=== PATIENT | male | born 1995 | race Caucasian/White ===

== ENCOUNTER 2017-01-24 16:56 | Emergency (ER) | payer OTHER | END 2017-01-24 17:10 | disposition left against medical advice (07) | LOC: CED 16:56 | DX: Z53.21 Procedure and treatment not carried out due to patient leaving prior to being seen by health care provider (principal) ==

== ENCOUNTER 2018-07-31 14:00 | Inpatient (IN) | payer MEDICAID, OTHER ==
--- NOTE | 2018-07-31 14:30 | EDPHY ---
H & P Smoking Status: Never smoked Time Seen by Provider: 07/31/18 14:06 HPI/ROS: CHIEF COMPLAINT: Suicidal ideation, increasing agitation HISTORY OF PRESENT ILLNESS: Patient had an argument in a coffee shop today with another person. He has a history of autism and depression. He was making suicidal statements to his parents and was increasingly agitated since this encounter and his mental health provider recommended to come to the emergency department for evaluation. Here the patient says he has some suicidal thoughts but no plan. Denies homicidal ideation or hallucinations. REVIEW OF SYSTEMS: Eye: no change in vision ENT: no sore throat Cardiac: no chest pain or syncope Pulmonary: no cough or SOB Abdomen: Has some nausea and recent vomiting does not have abdominal pain. No diarrhea. Musculoskeletal: no back pain Skin: no rash Neuro: no headache Constitutional: no fever : no urinary symptoms A comprehensive 10 point review of systems is otherwise negative aside from elements mentioned in the history of present illness. PAST MEDICAL HISTORY: Autism and depression Social history: Nonsmoker, no alcohol General Appearance: Alert and conversant, cooperative. Eyes: No scleral icterus. ENT, Mouth: Normal mucous membranes. Respiratory: Normal respiratory effort, breath sounds equal, lungs are clear to auscultation. Cardiovascular: Regular rate and rhythm. Gastrointestinal: Abdomen is soft and non tender. No rebound or guarding. No McBurney's point tenderness. Neurological: Alert, face symmetric, normal motor and sensory in extremities. Skin: Warm and dry, no rashes. Musculoskeletal: No peripheral edema. Psychiatric: Not agitated. Otherwise as in HPI. Emergency Department course/MDM: Labs and urine tox, psychiatric evaluation. Signed out to [facility] at 1500 with psychiatric evaluation pending. (Justice Gallegos) Constitutional: Initial Vital Signs Temperature (C) 37.5 C 07/31/18 14:05 Heart Rate 97 07/31/18 14:05 Respiratory Rate 16 07/31/18 14:05 Blood Pressure 134/82 H 07/31/18 14:05 O2 Sat (%) 95 07/31/18 14:05 O2 Delivery Mode Room Air Allergies/Adverse Reactions: No Known Allergies Allergy (Unverified 07/31/18 14:03) Home Medications: Medication Instructions Recorded ARIPiprazole [Abilify 5 mg (*)] 5 mg PO HS 07/31/18 ARIPiprazole [Abilify] 15 mg PO HS 07/31/18 Melatonin [Melatonin 5 mg] 5 mg PO HS PRN 07/31/18 PARoxetine HCL [Paroxetine HCl] 40 mg PO HS 07/31/18 Medical Decision Making ED Course/Re-evaluation: 2132: Patient been accepted at [address] [place] [address] Alvar[address]. EMTALA FILLED OUT> APPROPRIATE TRANSFER WILL BE SET UP. (Wilbert Mendoza) - Data Points Laboratory Results: Laboratory Results 07/31/18 14:40 07/31/18 14:40 Medications Given: Aripiprazole (Abilify) 20 mg PO HS CRISTY Stop: 01/27/19 23:29 Last Admin: 07/31/18 23:33 Dose: 20 mg Lorazepam (Ativan) 0.5 - 1 mg PO Q4HRS PRN PRN Reason: Anxiety, Able to Take PO Stop: 01/27/19 22:59 Last Admin: 07/31/18 23:33 Dose: 1 mg Paroxetine HCl (Paxil) 40 mg PO HS CRISTY Stop: 01/27/19 23:29 Last Admin: 07/31/18 23:33 Dose: 40 mg Discontinued Medications Lorazepam (Ativan) 1 mg PO ONCE ONE Stop: 07/31/18 21:33 Last Admin: 07/31/18 21:35 Dose: 1 mg Departure - Departure Disposition: [facility] IP Clinical Impression: Severe major depression Condition: Good
[2018-07-31 14:48] LABS: PLATELET COUNT 209 10^3/uL (150-400)
[2018-07-31] MEDS ORDERED: LORazepam 1 MG TAB PO ONE (21:32)
[2018-07-31] MEDS ORDERED: LORazepam 1 MG TAB ONE (21:32)
--- NOTE | 2018-07-31 22:12 | ASMTTLCEVL ---
[facility] Evaluation - Basic Information Evaluation Start Date and 07/31/2018 06:30 PM Time Hospital Status Answers: M1 Hold Patient statement Notes: I got kicked out of a coffee shop. Yisel gotten verbally aggressive Narrative Notes: Pt is a 23 year old male who was brought to [facility] Ed after he got into an argument at a coffee shop and became verbally aggressive and agitated. Pts psychiatrist recommended pt come in to the emergency department for an evaluation. Per parents pt has increased agitation and insistence around going to this coffee shop even though he is no longer wanted there due to his aggressive behaviors. Today, pt became verbally aggressive to another customer and he vomited in and bathroom was kicked out of the coffee shop and pt became agitated. Pt stated, I get angry when I feel Yisel been wronged.This song writer spoke with pt.s psychiatrist Dr. Pierre. Dr. Pierre stated, Pts mother called him and stated People prison librarian him to be unsafe, and think he is dangerous and cannot contain him. Pt stated he was having SI yesterday he felt suicidal but no plan. Pt denies SI currently. Mom stated she does not feel safe taking pt home and stated, I know he will try and leave and go back to the coffee shop and because he is autistic, there will be a violent altercation. Mom would like pt to be hospitalized. Diagnosis History Notes: Pt has a hx of high functioning autism. Parents state his psychiatrist believe pt is showing signs of paranoia and has a mood disorder. Prior suicide attempts Notes: Pt denied any prior suicide attempts but stated he has had SI yesterday but no plan. Prior hospitalizations Notes: None reported Treatment Responses Notes: N/A History of violence Notes: Pt denied but father reported that pt told him just a few minutes prior to this evaluation that he wants to burn down the coffee house. Pt admitted that he did say that but that he does not mean it and if that even if I did do it, I would not do it when people were inside, but Im not going to do that. Therapist: Dr. Kelly Psychiatrist: Dr. Pierre Medications (name, dosage, route, freq uency) Notes: Abilify 20mg; Melatonin; Paroxetine 40mg Benzodiazapene (Unsure what benzo) Allergies/Reaction Notes: Nka Sleep Notes: Wnl Appetite Notes: Wnl Medical/Surgical history Notes: Pt reports recent vomiting and fainting. He has an appt tomorrow with his pcp for a check up. Substance use history (frequency, intensity, his tory, duration) Notes: Pt denied any drug use and states he drinks socially. Utox positive for benzodiazepines and bal was .0. Family composition Notes: Pt has 1 older half-brother. Need for family Answers: No participation in patient's care Family psychiatric/substance abuse history Notes: Pts maternal grandmother was schizophrenic, mother has depression. Father has depression and pt.s paternal aunt was schizophrenic. Developmental history Notes: Pt was dx with autism at age 23. Pt reports he was bullied all through elementary, middle school and high school. Pt denied any childhood abuse. Pt denied any concussions. Abuse concerns Answers: None Marital status/children Notes: Unmarried, no children. Living situation Notes: Pt Lives in [place] with his roommate in coffee shop. Sexual history/orientation Notes: Heterosexual Peer support/family strengths Notes: Pt stated he has a good support system. Education level/history Notes: Pt completed some college. Work history Notes: Pt stated he works at [employer]. Notes: None reported. Legal Notes: Pt stated road rage and followed up and yelled at her and hat block maker gave him a court date. There was another incident where pt liked a surgical scheduler at a coffee shop but she felt uncomfortable with his advances and the parking manager filed a restraining order against him and he will not be allowed to go back. Voodoo/Spiritual Notes: None that would interfere with tx. Leisure Notes: Pt enjoys hikers and bikes. Collateral Notes: Parents Dr. Pierre Patient's strengths Answers: Honest (Please select at least TWO strengths): Intelligent Willingness TLC Evaluation - Mental Status Exam Appearance: Answers: Appropriate Eye Contact: Answers: Intermittent Mood: Answers: Irritable Sad Affect: Answers: Calm Guarded Behavior: Answers: Cooperative Resistive to Care Speech: Answers: Relevant Logical Clear Coherent Thought Process: Answers: Organized Oriented Alert Insight: Answers: Fair Judgement: Answers: Poor Manic Signs/Symptoms Answers: Mood Swings Hallucinations: Answers: None Delusions: Answers: Paranoid Ideation Pt reported to have Answers: No suicidal/self-injuring ideation/behavior? Pt reported to be making Answers: Yes suicidal/self-injuring threats? Pt reported to have Answers: No aggression/assault ideation/behavior? Pt reported to be making Answers: Yes aggression/assault threats? Pt exhibits inability to Answers: No care for self/grave disability? Ideation/behavior is Answers: Yes chronic? Patient has a specific Answers: No plan? History of Answers: No suicidal/self-injuring ideation, behavior, or threats? History of Answers: Yes aggressive/assaultive ideation, behavior, or threats? History of serious Answers: No physical harm to self/others while in treatment setting? TLC Evaluation - Suicide/Homicide Risk Suicide Risk Factors: Answers: < 20 or > 40 Years of Age Agitation Rapid Mood Shifts Homicide/violence risk Answers: Threats Towards Others factors: Current Suicidal Answers: No Ideation? Current Suicidal Ideation Answers: Yes in the Past 48 Hours? Current Suicidal Answers: No Ideation, Worst Ever? Suicide Internal Answers: Absence of Psychosis Protective Factors: Suicide External Answers: Positive Therapeutic Protective Factors: Relationships Social Support Ranking of patient's Answers: Moderate suicidal risk: Ranking of patient's Answers: Moderate homicidal risk: TLC Evaluation - Wrap-up AXIS I Diagnosis (include DSM-V and ICD-10 codes), must also be entered in [employer], which is the source of truth. Notes: Unspecified Schizophrenia Spectrum and Other Psychotic Disorder 298.9 (F29) Autism Spectrum Disorder 299.00 (F84.0) In consultation with [facility] ED physician, Wilbert Salazar MD and on-call psychiatrist, Julianna Alvarado MD, both concurred that pt appears to meet 27-65 criteria requiring psychiatric hospitalization as pt appears to be at risk of harm to self/others due to a mental illness condition Evaluation End Date and 07/31/2018 10:10 PM Time (HH:MAURA): Date Signed: 07/31/2018 10:11 PM Electronically Signed By:Vielka Mendoza
--- NOTE | 2018-07-31 22:14 | ASMTTCLDSP ---
TLC Discharge Disposition Disposition: Answers: Admit Discharge Concerns/Recommendations: Notes: In consultation with [facility] ED physician, Wilbert Salazar MD and on-call psychiatrist, Julianna Alvarado MD, both concurred that pt appears to meet 27-65 criteria requiring psychiatric hospitalization as pt appears to be at risk of harm to self/others due to a mental illness condition. Pt was given the 3[facility] prohibited belongings list while in the ED. Was patient given the Answers: Yes Inpatient Behavioral Health Prohibited Belongings List while in the ED? For inpatient Julianna Alvarado MD admission, the following psychiatrist agreed to accept patient for admission to Behavioral Health ([facility]): Date Signed: 07/31/2018 10:13 PM Electronically Signed By:Vielka Mendoza
[2018-07-31] MEDS ORDERED: ACETAMINOPHEN 325 MG TAB PO PRN (23:25)
[2018-07-31] MEDS ORDERED: NICOTINE POLACRILEX 2 MG GUM B PRN (23:25)
[2018-07-31] MEDS ORDERED: MAGNESIUM HYDROXIDE 30 ML UDCUP PO PRN (23:25)
[2018-07-31] MEDS ORDERED: MAG HYDROX/AL HYDROX/SIMETH 30 ML UDCUP PO PRN (23:25)
[2018-07-31] MEDS ORDERED: OLANZapine DISINTEGR 5 MG TAB PO PRN (23:30)
[2018-07-31] MEDS ORDERED: ARIPiprazole 5 MG TAB PO SCH (23:30)
[2018-07-31] MEDS ORDERED: MELATONIN 3 MG TAB PO PRN (23:30)
[2018-07-31] MEDS: ARIPiprazole 10 MG TAB PO SCH (23:33)
[2018-07-31] MEDS: PARoxetine HCL 20 MG TAB PO SCH (23:33)
[2018-07-31] MEDS: LORazepam 0.5 MG TAB PO PRN (23:33)
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
[2018-08-01] MEDS: LORazepam 0.5 MG TAB PO PRN (10:04)
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
--- NOTE | 2018-08-01 16:01 | PDMN ---
Medical Necessity Medical necessity: Pt meets inpt criteria per MD order and [facility] B-012, Autism Spectrum Disorders, Adult: Inpatient Care. 23 y/o admitted w/autism spectrum disorder and adjustment disorder w/mixed disturbance of emotions and conduct, on M1 hold due to risk of harm to self and others, requiring inpt psychiatric hospitalization.
[2018-08-01] MEDS ORDERED: ONDANSETRON DISINTEGRATING 4 MG TAB PO PRN (18:58)
[2018-08-01] MEDS: PARoxetine HCL 20 MG TAB PO SCH (19:11)
[2018-08-01] MEDS: ARIPiprazole 10 MG TAB PO SCH (19:11)
--- NOTE | 2018-08-01 19:23 | PDGENHP ---
History and Physical - Chief Complaint medical evaluation - History of Present [facility]ness 23 [facility] Has depression, autism spectrum disorder and per report increasing depression and angry outbursts, concerns about suicidal thoughts. He denied recent illness, cough, congestion, v/d, abdominal pain. Does have frequent heartburn symptoms with nausea. Also has occ frontal headaches, no history of migraines. History Information - Allergies/Home Medication List Allergies/Adverse Reactions: No Known Allergies Allergy (Unverified 07/31/18 14:03) Home Medications: ARIPiprazole [Abilify 5 mg (*)] 5 mg PO HS 07/31/18 [Last Taken 07/30/18] ARIPiprazole [Abilify] 15 mg PO HS 07/31/18 [Last Taken 07/30/18] Melatonin [Melatonin 5 mg] 5 mg PO HS PRN 07/31/18 [Last Taken 07/30/18] PARoxetine HCL [Paroxetine HCl] 40 mg PO HS 07/31/18 [Last Taken 07/30/18] I have personally reviewed and updated: medical history, social history, surgical history Past Medical History: depressin, autism spectrum/[facility] (Dr Tan Pierre, Dr Oneil, PCP Dr Harshad Mason) - Past Medical History Additional medical history: no DM/HTN/asthma - Surgical History Reports: no pertinent surgical hx - Family History Positive for: non-pertinent - Social History Smoking Status: Never smoked Alcohol Use: Rarely (2-3 beers a week) Drug Use: None Additional social history: 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 a roommate, 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, family in area Review of Systems Review of Systems: Physical Exam Physical Exam: Temp Pulse Resp BP Pulse Ox 98.1 F 90 16 119/77 96 08/01/18 09:40 08/01/18 09:40 08/01/18 09:40 08/01/18 09:40 08/01/18 09:40 Constitutional: no apparent distress Eyes: anicteric sclera Ears, Nose, Mouth, Throat: moist mucous membranes, hearing normal Cardiovascular: regular rate and rhythym, no murmur, rub, or gallop Respiratory: no respiratory distress, no rales or rhonchi, clear to auscultation Gastrointestinal: normoactive bowel sounds, soft, non-tender abdomen Skin: warm, normal color Psychiatric: depressed, flat affect Lymph, Heme, Immunologic: no cervical LAD Lab Data & Imaging Review 07/31/18 14:40 07/31/18 14:40 WBC 6.65 10^3/uL (3.80-9.50) 07/31/18 14:40 RBC 5.32 10^6/uL (4.40-6.38) 07/31/18 14:40 Hgb 15.6 g/dL (13.7-17.5) 07/31/18 14:40 Hct 45.0 % (40.0-51.0) 07/31/18 14:40 MCV 84.6 fL (81.5-99.8) 07/31/18 14:40 MCH 29.3 pg (27.9-34.1) 07/31/18 14:40 MCHC 34.7 g/dL (32.4-36.7) 07/31/18 14:40 RDW 12.3 % (11.5-15.2) 07/31/18 14:40 Plt Count 209 10^3/uL (150-400) 07/31/18 14:40 MPV 10.3 fL (8.7-11.7) 07/31/18 14:40 Neut % (Auto) 70.2 % (39.3-74.2) 07/31/18 14:40 Lymph % (Auto) 21.5 % (15.0-45.0) 07/31/18 14:40 [place] % (Auto) 6.6 % (4.5-13.0) 07/31/18 14:40 Eos % (Auto) 0.8 % (0.6-7.6) 07/31/18 14:40 Baso % (Auto) 0.6 % (0.3-1.7) 07/31/18 14:40 Nucleat RBC Rel Count 0.0 % (0.0-0.2) 07/31/18 14:40 Absolute Neuts (auto) 4.67 10^3/uL (1.70-6.50) 07/31/18 14:40 Absolute Lymphs (auto) 1.43 10^3/uL (1.00-3.00) 07/31/18 14:40 Absolute Monos (auto) 0.44 10^3/uL (0.30-0.80) 07/31/18 14:40 Absolute Eos (auto) 0.05 10^3/uL (0.03-0.40) 07/31/18 14:40 Absolute Basos (auto) 0.04 10^3/uL (0.02-0.10) 07/31/18 14:40 Absolute Nucleated RBC 0.00 10^3/uL (0-0.01) 07/31/18 14:40 Immature Gran % 0.3 % (0.0-1.1) 07/31/18 14:40 Immature Gran # 0.02 10^3/uL (0.00-0.10) 07/31/18 14:40 Sodium 140 mEq/L (135-145) 07/31/18 14:40 Potassium 4.0 mEq/L (3.3-5.0) 07/31/18 14:40 Chloride 105 mEq/L (97-110) 07/31/18 14:40 Carbon Dioxide 25 mEq/l (22-31) 07/31/18 14:40 Anion Gap 10 mEq/L (6-14) 07/31/18 14:40 BUN 14 mg/dL (7-23) 07/31/18 14:40 Creatinine 0.8 mg/dL (0.7-1.3) 07/31/18 14:40 Estimated GFR > 60 07/31/18 14:40 Glucose 104 mg/dL (70-100) H 07/31/18 14:40 Hemoglobin A1c 5.7 % (4.0-6.0) 07/31/18 14:40 Estim Average Glucose 117 mg/dL (68-126) 07/31/18 14:40 Calcium 10.0 mg/dL (8.5-10.4) 07/31/18 14:40 Total Bilirubin 0.8 mg/dL (0.1-1.4) 07/31/18 14:40 Conjugated Bilirubin 0.2 mg/dL (0.0-0.5) 07/31/18 14:40 Unconjugated Bilirubin 0.6 mg/dL (0.0-1.1) 07/31/18 14:40 AST 27 IU/L (17-59) 07/31/18 14:40 ALT 32 IU/L (21-72) 07/31/18 14:40 Alkaline Phosphatase 79 IU/L (38-126) 07/31/18 14:40 Total Protein 7.6 g/dL (6.3-8.2) 07/31/18 14:40 Albumin 4.8 g/dL (3.5-5.0) 07/31/18 14:40 Triglycerides 275 mg/dL (40-150) H 07/31/18 14:40 Cholesterol 203 mg/dL (140-200) H 07/31/18 14:40 Cholesterol Risk Factr 1.0 (0.2-1.0) 07/31/18 14:40 LDL Cholesterol, Calc 105 mg/dL (60-100) H 07/31/18 14:40 LDL Risk Factor 0.8 (0.2-1.0) 07/31/18 14:40 VLDL Cholesterol 55 mg/dL (8-25) H 07/31/18 14:40 Non-HDL Cholesterol 160 mg/dL (90-129) H 07/31/18 14:40 HDL Cholesterol 43 mg/dL (40-70) 07/31/18 14:40 LDL/HDL Ratio 2.44 RATIO (1.00-3.64) 07/31/18 14:40 Cholesterol/HDL Ratio 4.72 RATIO (1.00-4.97) 07/31/18 14:40 Salicylates < 1.0 mg/dL (2.0-20.0) L 07/31/18 14:40 Urine Opiates Screen NEGATIVE (NEGATIVE) 07/31/18 16:22 Acetaminophen < 10 mcg/mL (10-30) L 07/31/18 14:40 Urine Barbiturates NEGATIVE (NEGATIVE) 07/31/18 16:22 Ur Phencyclidine Scrn NEGATIVE (NEGATIVE) 07/31/18 16:22 Ur Amphetamine Screen NEGATIVE (NEGATIVE) 07/31/18 16:22 U Benzodiazepines Scrn NON-NEGATIVE (NEGATIVE) H 07/31/18 16:22 Urine Cocaine Screen NEGATIVE (NEGATIVE) 07/31/18 16:22 U Marijuana (THC) Screen NEGATIVE (NEGATIVE) 07/31/18 16:22 Ethyl Alcohol < 10 mg/dL (0-10) 07/31/18 14:40 Assessment & Plan Assessment: Adjustment disorder with mixed disturbance of emotions and conduct (Acute) Autism spectrum disorder (Chronic) -per team Heartburn/nausea -ordered pepcid daily and zofran to use as needed Headache -prns ordered Thank you for asking hospitalist to participate in his care and please contact us if further medical needs arise.
[2018-08-02] MEDS: FAMOTIDINE 20 MG TAB PO SCH (08:53)
[2018-08-02] MEDS: LORazepam 0.5 MG TAB PO PRN (14:48)
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
--- NOTE | 2018-08-02 17:25 | SOAPPROG ---
SOAP Progress Note Assessment/Plan: Assessment: 23 yo man with ASD who had an argument in a coffee shop, and was making suicidal statements to his parents. He denies intent or plan. Plan: 08/02/18 17:21 1. Patient has been appropriate and cooperative on unit. He enjoys socializing with peers and attending group therapy. 2. [facility] [place] feel comfortable with patient returning to his own apartment and being alone. She says he cannot stay with her at her house. [facility] [place]. CC will attempt to contact [facility] providers to discuss options for respite placement. 3. Patient has not made any mention of SI or intent or plan to harm himself or anyone else. 4. Patient is eating and sleeping well. 5. CCM Subjective: Patient has been cooperative and appropriate on unit. He does not demonstrate any aggressive or unsafe behavior. MOC spoke to CC and explained that patient can't live with her, and she doesn't feel comfortable with patient returning to his own place. attempted to explain there are not many other options for patient right now. [facility] [place] [facility] could offer some type fo respite care for him temporarily. CC attempted to contact [facility], but they have not responded yet. Objective: Vital Signs Temp Pulse Resp BP Pulse Ox 36.7 C 67 16 137/72 H 100 08/01/18 09:40 08/02/18 06:00 08/02/18 06:00 08/02/18 06:00 08/02/18 06:00 MSE: Affect: Flat Mood: "OK" TP: Slow to respond, paucity of speech TC: Denies any SI/HI Insight/Judgment: Poor - Time Spent With Patient Time Spent With Patient: 15" - Pending Discharge Pending Discharge Within 24 Hours: No Pending Discharge Within 48 Hours: No ICD10 Worksheet Patient Problems: Problems Problem Status Onset Adjustment disorder with mixed disturbance of emotions and conduct Acute Autism spectrum disorder Chronic
[2018-08-02] MEDS: ARIPiprazole 10 MG TAB PO SCH (21:00)
[2018-08-02] MEDS: PARoxetine HCL 20 MG TAB PO SCH (21:00)
[2018-08-03] MEDS: FAMOTIDINE 20 MG TAB PO SCH (09:10)
--- NOTE | 2018-08-03 15:05 | ASMTBHDC ---
Notes Note: Notes: Pt. reports feeling "pretty good. Nice and cozy in here". Pt. reports sleeping "really well". Pt. stated he is "absolutly" getting enough to eat. Pt. reports no issues with his current medications. Pt. stated his therapist is Dr. Oneil, in [place] Pt. stated he is attending groups, and likes art group. Pt. stated "found everyone here to be very nice". Pt. shared he had several visitors yesterday. Pt. requested to shave. Pt. stated he hopes to discharge on Saturday and then take Saturday off from work. When asked if he could stay away from the coffee shop near his home, pt stated "try but don't know if I could do that". Pt. stated he doesn't have a car. Pt. stated he likes coffee shops. Pt. denied SI, HI, AVH, and paranoia. Pt. presents as alert, good eye contact, fidgety cooperative, and friendly. Staff report pt. sleeping 8 hours and being medication compliant. Date Signed: 08/03/2018 03:04 PM Electronically Signed By:Mary Ellen Mendez
--- NOTE | 2018-08-03 17:43 | SOAPPROG ---
SOAP Progress Note Assessment/Plan: Assessment: 23 yo man with ASD who had an argument in a coffee shop, and was making suicidal statements to his parents. He denies intent or plan. Plan: 08/02/18 17:21 1. Patient has been appropriate and cooperative on unit. He enjoys socializing with peers and attending group therapy. 2. [facility] reports she does not feel comfortable with patient returning to his own apartment and being alone. She says he cannot stay with her at her house. [facility] is requesting a respite placement. will attempt to contact [facility] providers to discuss options for respite placement. 3. Patient has not made any mention of SI or intent or plan to harm himself or anyone else. 4. Patient is eating and sleeping well. 5. [facility] 08/03/18 17:37 1. Patient remains cooperative, calm and appropriate. He has attended all groups. No aggression or unsafe behavior. 2. [facility] reports patient vomited frequently prior to admission. She thinks it's b/ c he drinks too much coffee. She wrote long letter describing patient's daily routine. He spends most of his day at one of two coffee chops in his neighborhood. She says he doesn't know how to regulate his caffeine intake. He was asked not to return to one coffee shop b/c he vomited in their restroom. 3. Patient obviously benefits from routine and structure of hospital environment. He may not be suited to living independently. [facility] would like [facility] to offer patient a nursing home or respite placement. has left messages with [facility] ed case manager. Will likely need to f/u with [facility] on Saturday to determine whether there are any placement options available. 4. also left message with OP psych MD, Dr. Pierre, about placement and aftercare appointments. 5. CCM. 6. Patient agrees to sign in voluntary. Subjective: Patient is wearing shorts and T-shirt despite it being < 30 deg outside and snowing. He says he is enjoying his stay in hospital. He is interacting appropriately with peers and participating in group therapy and milieu activities. [facility] left letter for MD to read. She is very worried about patient returning to his apartment to live alone. She says he spends most of his time at two coffee shops in his neighborhood and has alienated staff at both places d /t his inappropriate behavior. She reports patient has difficulty regulating himself and becomes easily frustrated in social situations. MOC feels like patient needs more structure and supervision. He works part-time at [employer]. She would like him to live in nursing home, but so far [employer] has not approved this. Objective: Vital Signs Temp Pulse Resp BP Pulse Ox 36.5 C 61 20 128/75 H 93 08/03/18 06:00 08/03/18 06:00 08/03/18 06:00 08/03/18 06:00 08/03/18 06:00 MSE: Affect: Pleasant Mood: "Good" TP: Goal-directed TC: Denies any SI/HI Insight/Judgment: Fair for his cognitive baseline (FSIQ 80) - Time Spent With Patient Time Spent With Patient: 15" - Pending Discharge Pending Discharge Within 24 Hours: No Pending Discharge Within 48 Hours: No ICD10 Worksheet Patient Problems: Problems Problem Status Onset Adjustment disorder with mixed disturbance of emotions and conduct Acute Autism spectrum disorder Chronic
[2018-08-03] MEDS: ARIPiprazole 10 MG TAB PO SCH (21:00)
[2018-08-03] MEDS: PARoxetine HCL 20 MG TAB PO SCH (21:00)
[2018-08-04] MEDS: FAMOTIDINE 20 MG TAB PO SCH (08:05)
--- NOTE | 2018-08-04 08:42 | SOAPPROG ---
SOAP Progress Note Assessment/Plan: Assessment: Major Depressive Disorder, Severe. Autism Spectrum Disorder. Improvement noted. (see subjective/objective note). Patient requires continued inpatient hospitalization due to recent suicidal ideation. Patient could benefit from continued inpatient hospitalization for crisis stabilization, safety, and medication evaluation. Patient likely reaching baseline and discharge tomorrow if stable with safe discharge plan. Plan: 1. Psychotropic medications: After reviewing options, risks, and benefits patient agrees to continue current medications. No other medication changes at this time as more time is needed to determine ongoing tolerability and efficacy. Plan is to continue to observe patient for response and side effects from medications, and ongoing monitoring and evaluation. 2. Review with patient informed consent and recommendations for psychotropic medication treatment listed below 3. Labs: no additional labs at this time 4. Therapy: continue milieu and group therapy 5. Further investigation including gathering information from patients relatives and review of past case records to inform treatment plan. 6. Safety/Wellness plan and follow-up outpatient appointments to be established prior to discharge. Next steps are for patient to meet with resident care aide to plan a safe discharge plan and establish outpatient services for ongoing treatment. 7. Confer with inpatient treatment team regarding treatment plan. 8. Psychosocial stressors addressed through day care provider 9. Legal status: voluntary 10. Consider discharge on Saturday if patient is in stable condition, safe, and has a safe discharge plan. PSYCHOTROPIC MEDICATION TREATMENT INFORMED CONSENT and RECOMMENDATIONS: Review nature of condition, diagnosis, and prognosis. Review nature and purpose of psychotropic medication treatment. Review type of psychotropic medications being ordered. Review risk and benefits of psychotropic medication treatment. Review probable length of time patient will need to take medications. Review risk and benefits of not undergoing psychotropic medication treatment. Review alternative treatments to psychotropic medications. Review psychotropic medications contraindications, drug-drug interactions, side effects, and importance of reporting any side effects to a psychiatric provider or nurse during inpatient hospitalization, and upon discharge to patients psychiatric outpatient provider, primary care provider, or other health manager urgent care. Review importance of asking a nurse, psychiatric provider, or primary care provider any questions or problems concerning the psychotropic medications. Verify patient understands the information that has been provided, and understands, accepts, and agrees to psychotropic medications. Review patients safety plan and importance of patient to report to staff while hospitalized if patient is ever a danger to self/others, or unable to care for self, and upon discharge, the importance for patient to contact [facility] or 911, or go to the nearest emergency room, if patient is ever a danger to self/others, or unable to care for self. Recommend that upon discharge patient establish medication management treatment with a psychiatric provider, establishes routine therapy appointments, and follow-up with primary care provider. Verify patient understands and agrees to these recommendations. 08/04/18 08:45 Subjective: Following up with patient for evaluation of depression and safety. Patient reports, "Doing good. Going okay." Patient expresses the following psychiatric symptoms none. Patient denies SI/HI, and reports no SI since prior to his admission. Patient denies HI prior to admission. Patient reports taking medications as prescribed, and describes response to medications as good. Patient does not report undesirable side effects from the medications, and agrees to continue current medications. Patient describes getting 8 hours of sleep. Objective: Vital Signs Temp Pulse Resp BP Pulse Ox 36.5 C 64 20 120/59 L 94 08/04/18 06:00 08/04/18 06:00 08/04/18 06:00 08/04/18 06:00 08/04/18 06:00 NURSING REPORT: Consulted with nursing for update on patients progress in treatment. Nurses report patient is engaged in treatment, is attending groups, slept 8 hours, expresses the following psychiatric symptoms: moderate anxiety; exhibits the following psychiatric symptoms: anxiety; is eating all meals, is agreeable to medications and taking as prescribed with no report of side effects , with no s/s of EPS/akathisia, and denies SI/HI, denies A/V hallucinations, and denies delusions. MD REPORT FROM WEEKEND: Patient is doing well, no complaints, no SI. MSE: The patient presents casually dressed and with good hygiene, and looks stated age. Patient is sitting, posture is upright, and position is relaxed. Patient appears awake, alert, and responds appropriately and reasonably during interview. Patient is engaged, relates well to interviewer, and emotional facial expression is appropriate to situation and changes appropriately with topic. Patient is cooperative, makes comfortable eye contact, and movements are voluntary, deliberate, coordinated, and smooth and even with no inappropriate movements. Patient makes laryngeal sounds effortlessly and shares conversation appropriately; pace of conversation is appropriate, and stream of talking is fluent; articulation is clear and understandable; word choice is effortless and appropriate for education level; completes sentences, occasionally pausing to think; rate and volume are appropriate for interview and setting. Patient reports mood as anxious. Patients affect is anxious, congruent with mood, and appropriate to speech and circumstances. Patient has linear and logical thinking, with no loose associations, tangential thought, thought blocking, concrete thinking, or any other signs of formal thought disorder. Patient denies suicidal and homicidal ideation, and denies hallucinations and delusions. Patient appears to be a reliable historian with sound judgement and good insight into current condition. Patient has no apparent dysfunction in recent or remote memory noted, and no evidence of gross cognitive dysfunction noted at any point during the interview. - Time Spent With Patient Time Spent With Patient: 15 minutes, met with patient individually. - Pending Discharge Pending Discharge Within 24 Hours: No Pending Discharge Within 48 Hours: No ICD10 Worksheet Patient Problems: Problems Problem Status Onset Adjustment disorder with mixed disturbance of emotions and conduct Acute Autism spectrum disorder Chronic
[2018-08-04] MEDS: LORazepam 0.5 MG TAB PO PRN (13:25)
--- NOTE | 2018-08-04 13:56 | ASMTBHDC ---
Notes Note: Notes: Pt. reports feeling "pretty good". Pt. stated he slept "good". Pt. stated he is "very mad at coffee shop". Pt. stated he is upset they threw him out for getting sick. Pt. stated "no one's helping me convince the coffee shop bora..." Pt. stated if he cannot go home, he could rent a hotel for a couple of nights, adding he has savings. Pt. stated he has over a $100 in savings. Pt. denied SI, HI, AVH and paranoia. Pt. presents as alert, slightly agitated, fair eye contact, fidgeting, and distracted. Staff report pt. sleeping 7.5 hours and being medication compliant. Date Signed: 08/04/2018 01:55 PM Electronically Signed By:Mary Ellen Mendez
--- NOTE | 2018-08-04 14:46 | ASMTBHFAM ---
Notes Note: Notes: CC spoke with pt's mother, Adore [phone] MOC stated pt. is "not going to let that go" referring to the coffee shop incident. MOC stated that is "part of why he can't return to his existing apartment". MOC stated pt needs "full supervision". MOC asked about if the pt's medications have been changed, adding she thinks he needs "medication stablization". MOC stated she "I disagree, he is a danger to himself". MOC stated he is a danger to himself because "if he decided to go back there, the police will get involved". MOC stated pt. is very scared of the police. MOC agreed to a family meeting on Saturday08/05/18 at 11:00am CC spoke with pt's [employer] (ICM), Harjinder Cook, ICM stated he is working on getting pt "emergency DD enrollment", adding it could take a few days to a few weeks. ICM stated pt is a "tier one" which makes him more difficult to place. ICM stated he has been in contact with MOC and pt's therapist. ICM stated if pt is eligible ICM will apply for an emergency funds application to assist with pt's housing. Date Signed: 08/04/2018 02:44 PM Electronically Signed By:Mary Ellen Mendez
[2018-08-04] MEDS: PARoxetine HCL 20 MG TAB PO SCH (21:04)
[2018-08-04] MEDS: ARIPiprazole 10 MG TAB PO SCH (21:04)
[2018-08-05 06:38] VITALS: BP 119/58
[2018-08-05] MEDS: FAMOTIDINE 20 MG TAB PO SCH (08:58)
--- NOTE | 2018-08-05 14:23 | BDS ---
REASON FOR ADMISSION: From the ED note dated 07/31/2018, the patient had an argument at a coffee shop prior to presenting to the emergency department. Patient has a history of autism and depression. Patient was making suicidal statements to his parents and was increasingly agitated since the encounter in the coffee shop, and his mental health provider recommended he go to the emergency department for evaluation. Patient reported suicidal thoughts with no plan. Patient denied homicidal ideation or hallucinations. Patient was admitted involuntarily on an M1 hold due to being a danger to himself. Patient was admitted for safety, crisis stabilization, and medication evaluation. ADMITTING DIAGNOSES: 1. Adjustment disorder with mixed disturbance of emotions and conduct. 2. Autism spectrum disorder admission. ADMISSION PHYSICAL EXAM: Patient was seen for history and physical on 2017, for medical clearance for inpatient psychiatric hospitalization. Patient was medically cleared for inpatient psychiatric hospitalization and treatment. For further details, please refer to history and physical dated 08/01/2018. ADMISSION LABORATORY DATA: CBC from 07/31/2018, within normal limits. BMP from 07/31/2018, within normal limits, except glucose is elevated at 104. Hemoglobin A1c from 07/31/2018, was 5.7 and within normal limits. Liver function from 07/31/2018, within normal limits. Lipid panel from 07/31/2018, within normal limits, except triglycerides were elevated at 175, cholesterol was elevated at 203, LDL cholesterol calculated was elevated at 105, VLDL cholesterol was elevated at 55, non-HDL cholesterol was elevated at 160. Toxicology screen from 07/31/2018, was non-negative for benzodiazepines, negative for all other substances screened, and negative for ethyl alcohol. MAJOR PROCEDURES/TESTS: None. HOSPITAL COURSE: The most prominent symptoms and behaviors while the patient was here were moderate anxiety and depression. Treatment modalities utilized were milieu and group therapy. Patient's outpatient medications were continued , including Paxil 40 mg p.o. q.h.s. and Abilify 20 mg p.o. q.h.s. these medications were tolerated with no report of side effects and with good response. Patient has improved considerably with no signs of psychiatric symptoms and no psychiatric symptoms expressed at time of discharge. Patient reports he has improved since admission, states to be in stable condition, feels safe to discharge, and he contracts for safety. Patient's response to treatment was good. There were no adverse or unexpected results of treatment. The patient was safe throughout his stay, active in treatment, attended and engaged in groups, and was appropriate with staff. Patient met with the treatment team prior to discharge to assess readiness to discharge and review discharge plan. The treatment team consensus is the patient is in stable condition, has a safe discharge plan, and is ready to discharge today. CONDITION AT DISCHARGE: Patient is in stable condition and is no longer a danger to self or others, and is not gravely disabled due to mental illness. Patient is no longer in need of inpatient level of care, and can be safely and effectively treated within the community. The patients level of risk at time of discharge is low. MSE: The patient is casually dressed and with good hygiene , and looks stated age. Patient is sitting, posture is upright, and position is relaxed. Patient appears awake, alert, and responds appropriately and reasonably during interview. Patient is engaged, relates well to interviewer, and emotional facial expression is appropriate to situation and changes appropriately with topic. Patient is cooperative, makes comfortable eye contact , and movements are voluntary, deliberate, coordinated, and smooth and even with no inappropriate movements. Patient makes laryngeal sounds effortlessly and shares conversation appropriately; pace of conversation is appropriate, and stream of talking is fluent; articulation is clear and understandable; word choice is effortless and appropriate for education level; completes sentences, occasionally pausing to think; rate and volume are appropriate for interview and setting. Patient reports mood as euthymic. Patients affect is stable with full variable range, congruent with mood, and appropriate to speech and circumstances. Patient has linear and logical thinking, with no loose associations, tangential thought, thought blocking, concrete thinking, or any other signs of formal thought disorder. Patient denies suicidal and homicidal ideation, and denies hallucinations and delusions. Patient appears to be a reliable historian with sound judgement and good insight into current condition. Patient has no apparent dysfunction in recent or remote memory noted , and no evidence of gross cognitive dysfunction noted at any point during the interview. DISCHARGE DIAGNOSES: 1. Adjustment disorder with mixed disturbance of emotions and conduct. 2. Autism spectrum disorder admission. CURRENT MEDICATIONS: After reviewing options risks and benefits with the patient, patient agrees to continue: 1. Abilify 20 mg p.o. q.h.s. 2. Paroxetine 40 mg p.o. q.h.s. Patient reports he has prescriptions for these medications and does not require any prescriptions at time of discharge. The medications and dosage and dosages are reviewed with the patient at time of discharge to ensure accuracy and patient understanding. DISPOSITION: Patient left hospital independently and voluntarily with his mother and father after meeting with this PARISH VISITOR and occasional caregiver for a family meeting. Patient plans to return home with his parents. FOLLOWUP: career development coordinator reports the appropriate outpatient follow-up services have been established and outpatient appointments have been scheduled. The patient received written instructions with times and dates of outpatient follow-up appointments. The following follow-up recommendations were provided to the patient at discharge: Continue psychotropic medications as prescribed and attend appointments as scheduled. Report any side effects to a psychiatric outpatient provider, a primary care provider, or other health ocular care aide. Address any questions or problems concerning the psychotropic medications with a psychiatric outpatient provider, a primary care provider, or other health ocular care aide. Contact [facility] or [facility], or go to the nearest emergency room, if you are ever a danger to yourself/others, or unable to care for yourself. As soon as possible, establish a routine medication management treatment with a psychiatric provider, establish routine therapy appointments, and follow-up with a primary care provider. LEGAL COURSE: Patient was admitted on an M1 hold for involuntary inpatient psychiatric hospitalization. Patient discharged today independently and voluntarily with his parents. ATTITUDE AT TIME OF DISCHARGE: Patient reports, "I go a lot of good information from the groups here that I can use when I have intrusive thoughts. I learned the most from the groups." The patients attitude was positive at time of discharge, and patient reports looking forward to discharging today. The patient reports he feels safe to discharge, is no longer a danger to himself or others, is in stable condition, and contracts for safety. Patient states he will continue medications as prescribed, and establish medication management treatment with an outpatient provider after discharge. Patient reports he understands the information that has been provided to him, and he understands, accepts, and agrees to psychotropic medications. Patient describes internal protective factors as the coping skills he has learned while hospitalized here, and he plans to continue to practice these coping skills after discharge. Patient reports external protective factors as family. FAMILY MEETING: This PARISH VISITOR and occasional caregiver met with patient's parents at time of discharge at patient's request to review discharge plan and assess readiness to discharge. Patient's parents are supportive of patient and his ongoing treatment. Patient's parents report patient is safe to discharge and has a safe discharge plan. LABORATORY/STUDIES: There were no pending labs or studies at time. ADVANCED DIRECTIVES: There were no advance directives on file and patient was full code during this hospitalization. The following psychotropic medication treatment informed consent and recommendations were provided to the patient at time of discharge. Patient reports he understands, accepts, and agrees to the information that has been provided. PSYCHOTROPIC MEDICATION TREATMENT INFORMED CONSENT and RECOMMENDATIONS: Review nature of condition, diagnosis, and prognosis. Review nature and purpose of psychotropic medication treatment. Review type of psychotropic medications being prescribed. Review risk and benefits of psychotropic medication treatment. Review probable length of time will need to take medications. Review risk and benefits of not undergoing psychotropic medication treatment. Review alternative treatments to psychotropic medications. Review psychotropic medications contraindications, side effects, and importance of reporting any side effects to a psychiatric provider, primary care provider, or other health ocular care aide. Review importance of asking a psychiatric provider or primary care provider any questions or problems concerning the psychotropic medications. Review safety plan and the importance to contact [facility] or [facility] , or go to the nearest emergency room, if ever a danger to yourself/others, or unable to care for yourself. Recommend upon discharge to establish routine medication management treatment with a psychiatric provider, establish routine therapy appointments, and follow-up with a primary care provider. Verify patient understands, accepts, and agrees to the information that has been provided. /[id number]/[id number] MTDD
== END 2018-08-05 11:28 | disposition home or self-care (01) | DRG 882 ==
LOC: BBEH 22:50
PROVIDERS: ADMIT Psychiatry & Neurology Behavioral Neurology & Neuropsychiatry; ATTEND Psychiatry & Neurology Behavioral Neurology & Neuropsychiatry
DX: F43.25 Adjustment disorder with mixed disturbance of emotions and conduct (principal); F84.0 Autistic disorder
CPT/HCPCS: 80305; G0480